=== PATIENT | male | born 1960 | race Caucasian/White ===

== ENCOUNTER 2023-07-27 10:54 | Emergency (ER) | payer MEDICARE, SELFPAY ==
[2023-07-27 11:05] VITALS: BP 147/96
--- NOTE | 2023-07-27 11:13 | ED.GENMED ---
History of Present Illness
General
Chief Complaint: Allergic Reaction
Time Seen by Provider: 07/27/23 11:13
Travel History
Have you had any contact with someone who has COVID-19?: No
Do you have any symptoms of coronavirus? Fever > 100 degrees, chills, cough, shortness of breath, sore throat, loss of taste or smell, muscle aches, or headache?: No
History of Present Illness
History of Present Illness:
HPI: Patient was outside in the field today and developed onset of left periorbital edema. 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 This is associated with itchiness. He felt some shortness of breath. He took some
xxkw-dlv-fvwtddf allergy medicine that a customer gave him.
EXAM:
GENERAL: Well appearing in no distress, there appears to be plant/allergen debris of the shoes
HEENT: Moist oral mucosa, there is scleral chemosis to the left eye, there is also periorbital edema without significant erythema to the left eye
NEUROLOGIC: Excellent strength all extremities, no coordination deficits
PSYCHIATRIC: Appropriate mental status, normal insight and judgement
EXTREMITIES: Nontender, no edema, moves all extremities equally
SKIN: No rash, no lesions
TIME OF INITIAL ENCOUNTER: 11:30 AM
NUMBER AND COMPLEXITY OF PROBLEMS ADDRESSED AT THE ENCOUNTER
� Chronic conditions affecting care: Has had Lyme disease in the past, otherwise fairly healthy
� Acute Exacerbation and/or Progression of Chronic Illness: This is an acute problem
� Differential Diagnosis includes: Allergic reaction, periorbital cellulitis very unlikely
AMOUNT AND/OR COMPLEXITY OF DATA TO BE REVIEWED AND ANALYZED
� I performed an independent evaluation of and my interpretation is:
EKG:
CT:
X-rays:
Laboratory Studies:
Other:
� Review of other/old records: I reviewed records�the patient was here with paresthesias in 2016
� Clinical information was obtained by an independent historian: I spoke to the daughter at bedside
� Prescriptions/Medications Considered but not given:
� Further testing considered but not performed:
RISK OF COMPLICATIONS AND/OR MORBIDITY OR MORTALITY OF PATIENT MANAGEMENT
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
� Discussion with other providers: None needed
� Escalation of care including admission/observation vs risk of discharge considered: The patient has evidence of allergic reaction primarily at the left periorbital eye however there is associated scleral chemosis. I recommend
that the patient try esgy-kvm-nfllrit Pataday. Will also start steroid medication and I have given him a prescription for an EpiPen. I irrigated the low time with saline after giving him tetracaine.
Past History
Past History
ED Past Medical History: None
ED Past Surgical History: None
Social History
Tobacco: Non-smoker
Alcohol: Occasional
Personal:
Living: with family
Employment: Employed
Family History
Family History: Other (reviewed and non-contributory)
Phy Exam
Physical Exam
Physical Exam:
See HPI
Course
Orders/Labs/Results
Orders:
Orders
07/27/23 11:19
Tetracaine HCl [Tetracaine 0.5% Ophthalmic Solution] 1 drop .ROUTE .STK-MED ONE
07/27/23 11:20
Prednisone [Deltasone] 50 mg PO NOW STA
Tetracaine HCl [Tetracaine 0.5% Ophthalmic Solution] See Dose Instructions OPHTH ONCE ONE
Vital Signs
Initial and Last Documented VS:
Initial Vital Signs
Temp Pulse Resp BP Pulse Ox
97.3 F 72 18 147/96 98
07/27/23 11:05 07/27/23 11:05 07/27/23 11:05 07/27/23 11:05 07/27/23 11:05
Last Documented Vital Signs
Temp Pulse Resp BP Pulse Ox
97.3 F 72 18 147/96 98
07/27/23 11:05 07/27/23 11:05 07/27/23 11:05 07/27/23 11:05 07/27/23 11:05
*Critical Care Note
Total Time (30-74mins, 75-104mins- exclusive of procedures): Not Applicable
ED Attending Note
-
Portions of this chart may have been created with voice recognition software.� Occasional wrong word or��sound alike� substitutions may have occurred due to the inherent limitations of voice recognition software.
Discharge Plan
Departure
Patient Disposition: Home (Routine Discharge)
Date of Disposition: 07/27/23
Time of Disposition: 11:21
Patient with high blood pressure during this ER visit?: Yes
Discharge Problem:
Allergic reaction
Instructions: Allergic Reaction ED
Prescriptions:
New
prednisone 50 mg tablet
50 mg PO DAILY Qty: 4 0RF
epinephrine [EpiPen 2-Power] 0.3 mg/0.3 mL auto-injector
0.3 mg IM ONCE PRN (Reason: anaphylaxis) Qty: 2 0RF
No Action
atorvastatin 40 MG tablet
40 mg PO QPM Qty: 30 0RF
aspirin 81 MG tablet,chewable
81 mg PO DAILY 0RF
Referrals:
Julianne Kam MD [Active] - Follow up in 2-3 days
Activity Restrictions/Additional Instructions:
Consider ighx-wvm-teulsbv Pataday drops�this is an antihistamine. I also recommend using vnko-vef-qcwejdw allergy medication such as Zyrtec or Benadryl. I sent a prescription to your pharmacy for steroids. I irrigated the left eye with saline. I
have given you the contact information for local corporate auditor�Dr. Kam.
Interventions
Interventions:
*ED COVID-19 Vaccine History Last Done: 07/27/23 11:05
Discharge Date and Time
Print Language: YI
[2023-07-27] MEDS: DELTASONE 50 MG PO (11:35)
[2023-07-27] MEDS: TETRACAINE 0.5% OPHTHALMIC SOLUTION 1 DROP OPHTH (11:36)
== END 2023-07-27 11:53 | disposition home or self-care (01) ==
LOC: EMR 10:54
PROVIDERS: EMERGENCY PHYSICIAN Emergency Medicine; FAMILY PHYSICIAN Family Medicine
DX: T78.40XA Allergy, unspecified, initial encounter (principal)
CPT/HCPCS: 99283